=== PATIENT | male | born 1955 | race American Indian/Alaskan Native ===

== ENCOUNTER 2018-02-06 06:20 | Day surgery (SDC) | payer OTHER ==
[~2018-02-06 06:20] MED LIST: ANCEF/STERILE WATER 2 GM/20 ML IV NR; LACTATED RINGERS 1,000 ML IV SCH; VERSED IV NR
[2018-02-06] MEDS ORDERED: NACL BACTERIOSTATIC INFILTRATI ONE (06:35)
[2018-02-06] MEDS ORDERED: GARAMYCIN/NS 80 MG/100 ML 100 ML IV SCH (07:00)
[2018-02-06] MEDS ORDERED: SUBLIMAZE ONE (07:05)
[2018-02-06] MEDS ORDERED: DIPRIVAN 10 MG/ML IV ONE ×2 (07:05→08:00)
[2018-02-06] MEDS ORDERED: PEPCID IV SCH (07:06)
--- NOTE | 2018-02-06 07:07 | Anesthesia Day of Surgery ---
Anesthesia Day of Surgery - Day of Surgery Patient Examined: Yes Patient H&P Reviewed: Yes Patient is NPO: Yes
--- NOTE | 2018-02-06 07:08 | Anesthesia Consultation ---
Anesthesia Consult and Med Hx Date of service: 02/06/18 - Airway Anesthetic Teeth Evaluation: Poor ROM Head & Neck: Adequate Mental/Hyoid Distance: Adequate Mallampati Class: Class I Intubation Access Assessment: Probably Good - Pulmonary Exam CTA: Yes - Cardiac Exam Cardiac Exam: RRR - Pre-Operative Health Status ASA Pre-Surgery Classification: ASA3 Proposed Anesthetic Plan: General (GA with LMA ok, Given pepcid in preop for controlled GERD) - Pulmonary Hx Smoking: No Hx Asthma: Yes (HAS NOT BEEN "OFFICIALLY DX") Hx Sleep Apnea: Yes (DX SLEEP APNEA , NO CPAP USE.) - Cardiovascular System Hx Hypertension: Yes (X 20 YRS) - Central Nervous System Hx Back Pain: Yes - Other Systems Hx Cancer: No
[2018-02-06] MEDS ORDERED: DECADRON ONE ×2 (08:30→08:54)
[2018-02-06] MEDS ORDERED: WATER FOR IRRIG STERILE IR ONE (08:30)
--- NOTE | 2018-02-06 08:45 | Short Stay Summary ---
Short Stay Documentation Date of service: 02/06/18 - History H&P: obtained from office - Allergies and Medications Current Medications: Allergies quinapril [From Accupril] Allergy (Verified 02/02/18 11:00) Anaphylaxis Home Medications Medication Instructions Recorded Confirmed Last Taken Type Carvedilol [Coreg] 25 mg PO BID 02/02/18 02/02/18 02/06/18 05:00 History Fluticasone [Flonase] 1 spray NS QDAY 02/02/18 02/06/18 2 Days Ago History ~02/04/18 hydrALAZINE [Apresoline] 25 mg PO BID 02/02/18 02/02/18 02/06/18 05:00 History Active Medications Cefazolin Sodium (Ancef/Sterile Water 2 Gm/20 Ml) 2 gm IV PREOP NR Stop: 02/06/18 23:59 Famotidine (Pepcid) 20 mg IV PREOP DEO Stop: 02/06/18 23:59 Last Admin: 02/06/18 07:23 Dose: 20 mg Gentamicin Sulfate/Sodium Chloride (Garamycin/Ns 80 Mg/100 Ml) 100 mls @ 200 mls/hr IV PREOP DEO Stop: 02/06/18 23:59 Lactated Ringer's (Lactated Ringers) 1,000 mls @ 100 mls/hr IV DIRECT DEO Last Admin: 02/06/18 06:50 Dose: 100 mls/hr Midazolam HCl (Versed) 2 mg IV PREOP NR Stop: 02/06/18 23:59 Last Admin: 02/06/18 07:17 Dose: 2 mg - Brief post op/procedure progress note Date of procedure: 02/06/18 Pre-op diagnosis: elevated psa , bph Post-op diagnosis: same Procedure: cysto, rpg, pus bx Anesthesia: GETA Findings: 112cc gland Surgeon: MARKO VICTORIA Pathology: list (prostate cores) - Hospital course Hospital course: [facility], post op info on chart - Disposition Condition at discharge: Stable Disposition: DC-01 TO HOME OR SELFCARE Short Stay Discharge Plan Follow up with: RUBIN CHANEY MD [Primary Care Provider] - 7 Days
[2018-02-06] MEDS ORDERED: XYLOCAINE MPF 2% ONE (08:54)
[2018-02-06] MEDS ORDERED: ZOFRAN ONE (08:54)
[2018-02-06] MEDS ORDERED: ROBINUL ONE (08:54)
--- NOTE | 2018-02-06 09:19 | Operative Report ---
PREOPERATIVE DIAGNOSIS: Elevated PSA of 7. POSTOPERATIVE DIAGNOSIS: Elevated PSA of 7. PROCEDURE: Cystoscopy, bilateral retrograde pyelograms, prostate ultrasound and biopsy, 112 mL prostate gland. SURGEON: Jonathon Choi MD ANESTHESIA: General. ESTIMATED BLOOD LOSS: Minimal. FLUIDS: Crystalloid. COMPLICATIONS: No complications. INDICATIONS: This patient is a 62-year-old gentleman, initially seen by Dr. Perdomo in our group several years ago. He had a prostate biopsy on 04/03 that was negative for PSA of 6. He was followed conservatively. Repeat PSA was 7. MRI of the prostate suggested a left-sided lesion. CT of abdomen and pelvis in 2016 revealed BPH, degenerative joint disease. He has an uncle that has prostate cancer. He has a history of sleep apnea and therefore we agreed to do under general anesthesia. DESCRIPTION OF PROCEDURE: The patient was taken to the operative suite, placed in a supine position. After adequate general anesthesia, he was prepped and draped in a sterile fashion. Cystoscopy was performed. No urethral abnormalities. His prostate displayed trilobar prostatic obstruction. His bladder did have mild diffuse trabeculation, no tumors or stones. Both ureteral orifices in normal position. Bilateral retrograde pyelograms were obtained with an 8 Serbian Mehul catheter and 8 mL of contrast. No filling defects or obstruction. Next, using a transrectal ultrasound probe, measurements of the prostate in 2 planes revealed a 112 mL gland. On rectal exam, was smooth, no nodules; however, there was a small area of concern, calcification on the left mid area. Multiple cores were taken at this area. Template biopsy was then performed. The patient tolerated the procedure well and was extubated and taken to recovery room in stable condition. He will go home on [employer]. Follow up in the office. JOB# [id number] [facility]
[2018-02-06] MEDS ORDERED: NORCO 5/325 PO PRN (09:33)
[2018-02-06 10:40] VITALS: BP 125/78
--- NOTE | 2018-02-07 07:38 | Ultrasound Report ---
ULTRASOUND GUIDED INTRAOPERATIVE History: Elevated PSA levels, prostate biopsy. Findings: Endorectal ultrasound guidance was provided by radiology during prostate biopsy by urology. 8 images were saved. Prostate volume measures 122cc. Please correlate with the procedural report as needed. Impression: Successful ultrasound-guided post biopsy.
--- NOTE | 2018-02-07 07:38 | Fluoroscopy Report ---
FLUOROSCOPY RETROGRADE UROGRAPHY: HISTORY: Elevated PSA levels. FINDINGS: Fluoroscopy was provided by radiology during retrograde urography by the urologist. 9 fluoroscopic images were captured. There is adequate filling of the ureters and intrarenal collecting systems with no filling defects or anatomic abnormalities identified. Please correlate with the procedural report if needed. IMPRESSION: Retrograde pyelograms within normal limits.
== END 2018-02-06 10:50 | disposition home or self-care (01) ==
LOC: OR 06:20
PROVIDERS: ATTEND Urology
DX: C61 Malignant neoplasm of prostate (principal); D07.5 Carcinoma in situ of prostate; N41.1 Chronic prostatitis; N40.0 Benign prostatic hyperplasia without lower urinary tract symptoms; I10 Essential (primary) hypertension; J45.909 Unspecified asthma, uncomplicated; G47.33 Obstructive sleep apnea (adult) (pediatric); Z88.8 Allergy status to other drugs, medicaments and biological substances
CPT/HCPCS: 52000; 55700; 74420; 76998; 88305; 88342; 88344; C1758; J0690; J1100; J1580; J2250; J2405; J2704; J3010; J7120; Q9967